=== PATIENT | male | born 1945 | race Caucasian/White ===

== ENCOUNTER → 2016-05-21 | Outpatient (CLI) | payer OTHER ==
[2016-03-01 08:25] VITALS: BP 143/66
[~2016-05-21] MED LIST: AMLO10TA2 PO; ASPI81TA2 PO; ATEN50TA PO; GABA-586 PO; GLIP10TA13 PO; HYDR-2666 PO; HYDR-971 PO; INSU100V13 SQ; IOHEXOL 180 MG/ML 10 ML VIAL. ONE; LOSA100T6 PO; METF10002 PO; MULT-245 PO; MULT-460 PO; OXYC-244 PO; POTA10TA10 PO; PRAZ2CAP2 PO; SERT100T PO; TERA10CA3 PO; VENTOLIN HFA18 GM INH; WARF1TAB PO; ZOLP5TAB4 PO; methylPREDNISolone ACETATE 40 MG/ML VIAL. ONE; methylPREDNISolone ACETATE 80 MG/ML VIAL. ONE
--- NOTE | 2016-05-21 23:00 | CONS ---
DATE OF CONSULTATION: 05/21/2016 INITIAL CONSULTATION FOR PAIN CLINIC CHIEF COMPLAINT: Low back, right lower extremity pain. HISTORY OF PRESENT ILLNESS: This is a 70-year-old male who presents with history of pain for many years, worse over the past 1 year, in the low back, right hip, right leg. The patient did have hip replacement in February 2016, which helped a lot with his hip pain, but still having some significant pain in his low back, occasionally radiating to his right leg, mostly in the lateral and anterior aspect as well as the medial aspect of the lower leg, but only rarely, mostly in the hip and thigh, posterior gluteus, lateral gluteus on the lateral thigh, that is on the right side, medial thigh on the right as well. The patient reports the pain is constant, sharp, stabbing, throbbing, intermittent in intensity with radiating pain in the right leg and aching. The patient did have some plain films in 04/2016 at the [facility] showing old unchanged compression fracture at L1, mild spondylosis with degenerative disk disease at T12 and L1 and questionable minimal change at L1-L2 from the film of 2013. Facet joint osteoarthropathy involving the lower segments and degenerative arthrosis that is involving sacroiliac joints, worse on the left. The patient reports that the pain awakens him from sleep at least twice a night. It does affect his bowel or bladder control. He reports he does not have any incontinence, but appeared to have increased urinary frequency when the pain is at its worst. The patient reports he is walking with a cane and does affect his ability to walk significantly when he holds it in his left hand. The patient has had physical therapy as well as counseling, some chiropractic treatment in the past, but nothing recently. Physical therapy was not for about 15 years or so. He is doing some stretching, strengthening on his own, but no formal therapy recently. The patient did have MRI scan. He reports that the ____ [facility] is pending at time of this dictation. Reports a disability rate from 0 to 10, 10 being the worst, is a 10 with family and home responsibilities and sexual behavior, 9 with recreation, 8 with social activity and occupation, 6 with self care and 7 with life support activities. The patient reports no loss of motor function of his right lower extremity, but does fatigue much more easily than the left, worse with standing, walking, changing positions, sitting from standing, also lying down and leaning on his right side causes some significant pain as well at night. PAST MEDICAL HISTORY: Significant for hearing loss, tinnitus, type 2 diabetes, hypertension, obesity, sleep apnea, quit smoking in 1984, shortness of breath with exertion, bradycardia, posttraumatic stress disorder, arthritis. PREVIOUS SURGERY: Include right total hip replacement in 02/2016 and oral surgery in 11/2015. CURRENT MEDICATIONS: Include metformin, albuterol inhaler, amlodipine, hydrocodone, Zoloft, terazosin, zolpidem, glipizide, insulin, losartan, prazosin, atenolol, aspirin, gabapentin. ALLERGIES: The patient has no known drug allergies. FAMILY HISTORY: Significant for diabetes, heart disease. SOCIAL HISTORY: The patient does not smoke, quit smoking many years ago, does not drink alcohol. He is single, , lives on his own and lives locally in [place], [place]. REVIEW OF SYSTEMS: The patient's review of systems is positive for those items mentioned in history of present illness. All systems reviewed and otherwise negative. It is complete, full and well documented on the patient's chart. PHYSICAL EXAMINATION: VITAL SIGNS: The patient's blood pressure is 162/71, pulse 56, respirations 20, temperature 97.7 degrees Fahrenheit, height 6 feet, weight 323 pounds. GENERAL: The patient is awake, alert, oriented, appropriate, very pleasant demeanor. HEENT: Head shows normocephalic, atraumatic. Extraocular movements are intact and symmetrical. Oral cavity shows mucous membranes moist and pink. Dentition is intact. NECK: Shows anterior throat supple without palpable lymphadenopathy noted. Swallow reflex is symmetrical. Neck shows full rotation and motion of cervical spine without tenderness or difficulty. CHEST: Shows normal on inspection. Breath sounds clear to auscultation bilaterally, no rales, rhonchi or wheezes were auscultated. HEART: Shows S1 and S2 clear. No murmurs auscultated. ABDOMEN: Obese, soft, nontender, nondistended. No palpable organomegaly is noted. No rebound or guarding demonstrated. BACK: The patient's back shows spine grossly midline. Normal appearing thoracic kyphosis and lumbar lordotic curvature. No previous bruises, lesions, rashes or scars are noted on inspection. Lumbar paraspinous musculature shows with palpation, significant tenderness in the low lumbar distribution, mostly on the right in the middle and lower paraspinous musculature, not on the left, but no asymmetry in the musculature on appearance. There is normal muscle girth and firm to the palpable ____, no tenderness over the spinous processes. No tenderness over the sacrum and sacroiliac regions. The patient shows good rotation and motion both laterally greater than 10 degrees right and left as well as extension greater than 10 degrees, forward flexion 45 degrees with very minor pain reported with extension, but not with forward flexion. EXTREMITIES: Lower extremities show deep tendon reflexes at 1+ in the patellar and tendo calcaneus tendons are equal. Motor exam is strong with approximately 4 on a scale of 5 with right quadriceps and hamstring flexion and 5/5 on the left, dorsiflexion, extension are 5/5 and equal bilaterally. Peripheral pulses are 1+ posterior tibial and dorsalis pedis pulses. No peripheral edema is noted. No clubbing, no cyanosis. Lower extremities are warm and dry to touch, equal in color and appearance. Straight leg raise noted to be negative for reproduction of radicular symptoms both right and left. Gaenslen's and Serge's maneuvers are slightly limited on the right side secondary to recent hip surgery, is negative bilaterally. The patient is able to stand, stand on his toes without difficulty, without loss of balance, able to heel toe step for several steps, some minor pain reported with putting all of weight on his right side, but he believes this is from his recent hip surgery and not in the back. Again, patient is using a cane, he is left-handed, slight favoring gait, favoring the right lower extremity with ambulation. IMPRESSION: 1. This is a 70-year-old male with long history of low back, right lower extremity pain with increased exacerbation over the past year or so. 2. Lumbar plain films as noted. 3. Recent hip replacement on the right. 4. Obesity. 5. Hypertension. 6. Type 2 diabetes. PLAN: Options were discussed with the patient including conservative medical management, physical therapy, interventional techniques. He would like to proceed with interventional techniques. We discussed a lumbar epidural steroid injection using description as well as anatomical models to describe the procedure. Risks were then discussed including, but not limited to bleeding, infection, possibility of epidural hematoma, subsequent neurologic compromise, dural puncture, headaches, spinal cord and/or nerve damage, side effects of steroid medication and possible exacerbation of current symptoms and poor results regarding pain control. The patient understands and wishes to proceed. The patient will return to clinic in approximately 2 weeks for followup, was counseled on return appointment, activity level and side effects to be aware of. DIAGNOSIS: Lumbar radiculopathy with lumbar degenerative disk disease and low back pain. PROCEDURES: Lumbar epidural steroid injection, translaminar approach at the L4-L5 level with fluoroscopic guidance under sterile prep and drape using local anesthetic. MEDICATIONS INJECTED: Depo-Medrol 120 mg plus 10 mL of preservative-free normal saline and 2 mL of Isovue contrast. CONDITION AT DISCHARGE: Stable. The patient tolerated the procedure well, had no complications. GILDARDO FAULKNER MD DR: TARI/salbador JOB#: [id number] / [id number]
== END ==
LOC: PNCL 08:57
PROVIDERS: ATTEND Anesthesiology
DX: M51.16 Intervertebral disc disorders with radiculopathy, lumbar region (principal); I10 Essential (primary) hypertension; E11.9 Type 2 diabetes mellitus without complications; E66.9 Obesity, unspecified; H91.90 Unspecified hearing loss, unspecified ear; M19.90 Unspecified osteoarthritis, unspecified site
CPT/HCPCS: 62323; J1030; J1040

== ENCOUNTER → 2016-07-10 | Outpatient (CLI) | payer OTHER ==
[2016-03-01 08:25] VITALS: BP 143/66
[~2016-07-10] MED LIST changes: -ZOLP5TAB4 PO; +ZOLP5TAB5 PO
--- NOTE | 2016-07-11 03:28 | PN ---
DATE: 07/10/2016 DIAGNOSES: Lumbar radiculopathy with lumbar degenerative disk disease and low back pain with. HISTORY OF PRESENT ILLNESS: The patient is a 71-year-old male who returns for followup status post lumbar epidural steroid injection x 1. The patient reports about 70% improvement in the low back and right lower extremity. Right lower extremity pain is almost gone, but he is still having some back pain, but is worse with standing or bending. The patient reports it as a dull aching sensation in the low back, alternating with some shooting pain in the right hip, but only very minimal in the hip. The patient reports it is 7 on a scale of 10 at its worst, reports no new motor or sensory deficits ____ increasing his activity as he has felt so much better with greater ease and comfort, sleeping well at night. The patient reports otherwise no new complaints. PHYSICAL EXAMINATION: VITAL SIGNS: Shows blood pressure 147/54, pulse 55, respirations 18, temperature 97.5 degrees Fahrenheit, height 6 feet, and weight is 330 pounds. GENERAL: The patient is awake, alert, oriented, appropriate, very pleasant demeanor. HEENT: Head shows normocephalic, atraumatic. Extraocular movements are intact and symmetrical. Oral cavity shows mucous membranes moist and pink. Dentition is intact. NECK: Shows anterior throat supple without palpable lymphadenopathy noted. Swallow reflex is symmetrical. CHEST: Shows normal on inspection. Breath sounds are clear to auscultation bilaterally. HEART: Shows S1 and S2 clear. No murmurs are auscultated. ABDOMEN: Obese, soft, nontender, and nondistended. No palpable organomegaly is noted. No rebound or guarding demonstrated. BACK: Shows spine grossly midline. Lumbar paraspinous musculature shows some mild tenderness with palpation, but only diffusely in the lower lumbar distribution bilaterally, but appears roughly symmetrical in appearance. Muscle girth is normal and firm in content. No tenderness over the spinous processes. No tenderness over the sacrum and sacroiliac regions. The patient shows good rotation and motion of the lumbar spine, both laterally as well as extension and flexion without significant difficulty as well. EXTREMITIES: The patient's lower extremities showed deep tendon reflexes 1+ in the patellar and tendo calcaneus tendons are equal. Motor exam is approximately 4 on a scale 5 with right quadriceps and hamstring flexion 5/5 on the left. Peripheral pulses are 1+ in the posterior tibial and dorsalis pedis pulses and are equal. Options were discussed with the patient and the patient's old chart was reviewed as his current medication regimen and updated. Current review of systems updated today as well. We will proceed with a second lumbar epidural steroid injection today with fluoroscopic guidance. Risks were again discussed including, but not limited to bleeding, infection, possibility of epidural hematoma, subsequent neurologic compromise, dural puncture, headaches, spinal cord and/or nerve damage, side effects of steroid medication and poor results regarding pain control. The patient understands and wishes to proceed. The patient will return to clinic in approximately 2 weeks for followup. He was counseled to return appointment, activity level and side effects to be aware of. DIAGNOSIS: Lumbar radiculopathy with lumbar degenerative disk disease and low back pain. PROCEDURES: Lumbar epidural steroid injection in translaminar approach to the L4-L5 level using fluoroscopic guidance under sterile prep and drape using local anesthetic. MEDICATIONS INJECTED: Depo-Medrol 120 mg plus 10 mL of preservative-free normal saline and 2 mL of Isovue contrast. The patient's condition on discharge is stable. The patient tolerated procedure well, had no complications. GILDARDO FAULKNER MD DR: TARI/nts JOB#: [id number] / [id number]
== END | disposition home or self-care (01) ==
LOC: PNCL 10:06
PROVIDERS: ATTEND Anesthesiology
DX: M51.16 Intervertebral disc disorders with radiculopathy, lumbar region (principal); E78.00 Pure hypercholesterolemia, unspecified; I10 Essential (primary) hypertension; M19.90 Unspecified osteoarthritis, unspecified site; E11.9 Type 2 diabetes mellitus without complications; F32.9 Major depressive disorder, single episode, unspecified; Z87.39 Personal history of other diseases of the musculoskeletal system and connective tissue; Z72.89 Other problems related to lifestyle
CPT/HCPCS: 62323; J1030; J1040; 62327

== ENCOUNTER → 2017-09-12 | Outpatient (CLI) | payer OTHER ==
[~2017-09-12] MED LIST changes: -AMLO10TA2 PO; -ASPI81TA2 PO; -ATEN50TA PO; -GABA-586 PO; -GLIP10TA13 PO; -HYDR-2666 PO; -HYDR-971 PO; -INSU100V13 SQ; +IOHEXOL 180 MG/ML 10 ML VIAL.; -IOHEXOL 180 MG/ML 10 ML VIAL. ONE; -LOSA100T6 PO; -METF10002 PO; -MULT-245 PO; -MULT-460 PO; -OXYC-244 PO; -POTA10TA10 PO; -PRAZ2CAP2 PO; -SERT100T PO; -TERA10CA3 PO; -VENTOLIN HFA18 GM INH; -WARF1TAB PO; -ZOLP5TAB5 PO; +methylPREDNISolone ACETATE 40 MG/ML VIAL.; -methylPREDNISolone ACETATE 40 MG/ML VIAL. ONE; +methylPREDNISolone ACETATE 80 MG/ML VIAL.; -methylPREDNISolone ACETATE 80 MG/ML VIAL. ONE
== END ==
LOC: PNCL 10:53
DX: M50.10 Cervical disc disorder with radiculopathy, unspecified cervical region (principal); M48.02 Spinal stenosis, cervical region; M51.16 Intervertebral disc disorders with radiculopathy, lumbar region
CPT/HCPCS: 62321; J1030; J1040; Q9965

== ENCOUNTER → 2019-06-02 | Outpatient (CLI) | payer OTHER ==
[2016-03-01 08:25] VITALS: BP 143/66
[~2019-06-02] MED LIST changes: +ALBU2.5V8 IH; +AMLO10TA8 PO; +ASPI-630 PO; +ATEN50TA PO; +GABA300C18 PO; +GLIP10TA13 PO; +HYDR-2761 PO; +HYDR-3164 PO; +INSU100V13 SQ; -IOHEXOL 180 MG/ML 10 ML VIAL.; +IOHEXOL 180 MG/ML 10 ML VIAL. ONE; +LOSA100T14 PO; +METF10007 PO; +MULT-245 PO; +MULT-460 PO; +OXYC1TAB19 PO; +POTA10TA12 PO; +POTASSIUM CHLO10 ME1 PO; +PRAZ2CAP2 PO; +ROSU5TAB12 PO; +SEMA0.25 SQ; +SERT100T PO; +SPIR50TA4 PO; +TAMS0.4C97 PO; +TERA10CA3 PO; +TERA5CAP3 PO; +VENTOLIN HFA18 GM INH; +WARF1TAB74 PO; +ZOLP5TAB5 PO; -methylPREDNISolone ACETATE 40 MG/ML VIAL.; +methylPREDNISolone ACETATE 40 MG/ML VIAL. ONE; -methylPREDNISolone ACETATE 80 MG/ML VIAL.; +methylPREDNISolone ACETATE 80 MG/ML VIAL. ONE
--- NOTE | 2019-06-02 11:39 | PAIN ---
DATE OF SERVICE: 06/02/2019 PROGRESS NOTE FOR PAIN CLINIC DIAGNOSES: 1. Lumbar radiculopathy with lumbar degenerative disk disease. 2. Cervical radiculopathy with cervical degenerative disk disease and cervical spinal stenosis. HISTORY OF PRESENT ILLNESS: The patient is a 73-year-old male who returns for followup, last seen on 09/12/2017. The patient did very well after lumbar epidural steroid injections and cervical epidural steroid injection. The patient reports that the pain is returning now for about the past 2 weeks at its worst, but in the low back and the right lower extremity posterior gluteus, lateral thigh, and lateral anterior thigh. The patient reports that it is worse with walking, standing, and changing positions. He did better for about a year after his last injection for this, and the pain is now returning, like I said, with activity. Initially, he was doing much better with distance walking, doing work activities, household activities, and traveling with greater ease and comfort. Sleeping still is without disturbance from the pain. The patient rates pain as 7 on a scale of 10 at its average and worst, a 4 at its least, and is a 4 today. The patient reports it is aching, sharp, and severe at times, again worse with ambulation, standing, and walking and the patient reports no new motor or sensory deficits. No new bowel or bladder incontinence or other complaints. PHYSICAL EXAMINATION: VITAL SIGNS: The patient's blood pressure is 150/60, pulse 60, respirations 18, temperature 97.9 degrees Fahrenheit, height is 6 feet, and weight is 324 pounds. GENERAL: The patient is awake, alert, oriented, and appropriate with very pleasant demeanor. HEENT: Shows normocephalic and atraumatic. Extraocular movements are intact and symmetrical. Oral cavity shows mucous membranes moist and pink. Dentition is intact. NECK: Shows anterior throat supple without palpable lymphadenopathy noted. Swallow reflex symmetrical. CHEST: Shows normal on inspection. Breath sounds are clear bilaterally. HEART: Shows S1, S2 clear. No murmurs auscultated. ABDOMEN: Soft, nontender, and nondistended. MUSCULOSKELETAL: Back shows spine grossly in the midline, slight exaggerated thoracic kyphosis, and minor flattening of lumbar lordotic curvature. Lumbar paraspinous muscle shows symmetrical on inspection and with palpation shows some moderate tenderness diffusely bilaterally, going diffusely without significant radiation. The patient has good rotational motion of lumbar spine, both laterally as well as extension and flexion without difficulty. EXTREMITIES: Lower extremities show deep tendon reflexes at 2+ in the patellar and 1+ tendo-calcaneus tendons. Motor exam is strong with 5/5 dorsiflexion, extension, quadriceps, and hamstring flexion. Peripheral pulses are 1+ posterior tibia. No peripheral edema is noted. PLAN: Options were discussed with the patient. The patient's old chart was reviewed as his current medication regimen updated. Current review of systems updated today as well. We will proceed with a lumbar epidural steroid injection today with fluoroscopic guidance. Risks were again discussed including but not limited to bleeding, infection, possibility of epidural hematoma, subsequent neurological compromise, dural puncture, headaches, spinal cord and/or nerve damage, side effects of steroid medication and poor results regarding pain control. The patient understands and wished to proceed. The patient will return to clinic in approximately 2 weeks for followup or as necessary. He would like to leave it open. He did very well after last injection. The patient was counseled as to activity level as well as side effects to be aware of. DIAGNOSIS: Lumbar radiculopathy with lumbar degenerative disk disease. PROCEDURE: Lumbar epidural steroid injection, translaminar approach at L4-5 level using C-arm fluoroscopic guidance under sterile prep and drape using local anesthetic. MEDICATION INJECTED: A total of 120 mg of Depo-Medrol plus 10 mL of preservative-free normal saline and 2 mL of contrast. CONDITION AT DISCHARGE: Stable. The patient tolerated procedure well and had no complications. GILDARDO FAULKNER MD DR: TARI/salbador JOB#: [id number] / [id number]
== END | disposition home or self-care (01) ==
LOC: PNCL 09:35
PROVIDERS: ATTEND Anesthesiology
DX: M51.16 Intervertebral disc disorders with radiculopathy, lumbar region (principal); M48.02 Spinal stenosis, cervical region; Z98.890 Other specified postprocedural states; Z88.8 Allergy status to other drugs, medicaments and biological substances
CPT/HCPCS: 62323; J1030; J1040; Q9965

== ENCOUNTER → 2019-07-14 | Outpatient (CLI) | payer OTHER ==
[2016-03-01 08:25] VITALS: BP 143/66
--- NOTE | 2019-07-14 14:41 | PAIN ---
DATE OF SERVICE: 07/14/2019 PROGRESS NOTE FOR PAIN CLINIC DIAGNOSES: Lumbar radiculopathy with lumbar degenerative disk disease and lumbar low back pain. HISTORY OF PRESENT ILLNESS: The patient is a 74-year-old male who returns for followup status post lumbar epidural steroid injection x 1. The patient reports about 80% improvement after the first injection in the low back into the bilateral lower extremities. The patient reports he has increased activity with greater distance walking, doing work activities, household activities, much better with sitting or lying down, does not awaken him from sleep most nights. The patient reports that with standing, such as fixing a meal or doing some dishes at the counter in his kitchen then he starts to notice the pain in the mid low back as well. The patient reports it is an 8 on a scale of 10 at its worst over the past week, 7 on average and 4 at its least and is a 4 today. The patient reports it is aching, sharp, becoming constant with activity, standing, walking, better with sitting or lying down, but is almost completely relieved. PHYSICAL EXAMINATION: VITAL SIGNS: The patient's blood pressure 144/61, pulse 63, respirations 18, temperature 97.9 degrees Fahrenheit, height 6 feet, weight is 323 pounds. GENERAL: The patient is awake, alert, oriented, appropriate, very pleasant demeanor. HEENT: Head shows normocephalic, atraumatic. Extraocular movements are intact and symmetrical. Oral cavity: Mucous membranes are moist and pink. Dentition is intact. NECK: Shows anterior throat supple without palpable lymphadenopathy noted. Swallow reflex symmetrical. CHEST: Shows normal on inspection. Breath sounds clear to auscultation bilaterally. HEART: Shows S1, S2 clear. ABDOMEN: Obese, soft, nontender, nondistended. No palpable organomegaly is noted. No rebound or guarding demonstrated. BACK: Shows spine grossly in the midline. Normal appearing thoracic kyphosis and minor flattening of lumbar lordotic curvature. Lumbar paraspinous muscle shows symmetrical on inspection, on palpation shows some moderate tenderness diffusely bilaterally and diffusely without significant radiation. The patient has good rotation of lumbar spine, both laterally as well as extension and flexion without difficulty. EXTREMITIES: Lower extremities show deep tendon reflexes 2+ in the patellar, 1+ tendo-calcaneus tendons. Motor exam is strong with 4/5 on the right and 5/5 on the left dorsiflexion and extension. Peripheral pulses are 1+ posterior tibia. No peripheral edema bilaterally. Options were discussed with the patient. The patient's old chart was reviewed as his current medication regimen updated. Current review of systems updated today as well. We will proceed with a second in a series of lumbar epidural steroid injection today with fluoroscopic guidance. Risks were again discussed including, but not limited to bleeding, infection, possibility of epidural hematoma, subsequent neurologic compromise, dural puncture, headaches, spinal cord and/or nerve damage, side effects of steroid medication and poor results regarding pain control. The patient understands and wished to proceed. The patient will return to clinic in approximately 2 weeks for followup. He was counseled on return appointment, activity level and side effects to be aware of. DIAGNOSES: Lumbar radiculopathy with lumbar degenerative disk disease, low back pain. PROCEDURE: Lumbar epidural steroid injection, translaminar approach at L4-L5 level using C-arm fluoroscopic guidance under sterile prep and drape using local anesthetic. MEDICATION INJECTED: A total of 120 mg Depo-Medrol plus 10 mL of preservative-free normal saline and 2 mL of contrast. CONDITION AT DISCHARGE: Stable. The patient tolerated the procedure well, had no complications. GILDARDO FAULKNER MD DR: TARI/salbador JOB#: [id number] / [id number]
== END ==
LOC: PNCL 09:40
PROVIDERS: ATTEND Anesthesiology
DX: M51.16 Intervertebral disc disorders with radiculopathy, lumbar region (principal)
CPT/HCPCS: 62323; J1030; J1040; Q9965

== ENCOUNTER → 2019-10-05 | Outpatient (CLI) | payer OTHER ==
[2016-03-01 08:25] VITALS: BP 143/66
--- NOTE | 2019-10-05 09:52 | PAIN ---
DATE OF SERVICE: 10/05/2019 PROGRESS NOTE FOR PAIN CLINIC DIAGNOSES: Lumbar radiculopathy with lumbar degenerative disk disease and low back pain. HISTORY OF PRESENT ILLNESS: The patient is a 74-year-old male who returns for followup status post lumbar epidural steroid injections x 2, most recently seen on 07/14/2019. The patient did very well with about a 70% improvement for about a month and the pain began to return after that time, but is now in the low back bilaterally into the lower extremities, mostly in the posterior gluteus, lateral thigh, anterior thighs and buttocks, especially across the low back. The patient reports initially he was doing much better with distance walking, doing household activities, working activities, traveling with greater ease and comfort. Reports he still sleeps well at night, does not bother him much when he is sitting or lying down, but it is more when he is on his feet, walking, changing positions. The patient reports no new motor or sensory deficits, rates his pain as a 10 on a scale of 10 at its worst in the past week, 7 on average and 4 at its least and is a 4 today. The patient reports it is aching, can be severe at times with increased activities or bending across the low back and into the legs. The patient reports no new bowel or bladder incontinence or other complaints. PHYSICAL EXAMINATION: VITAL SIGNS: The patient's blood pressure is 142/80, pulse 60, respirations 18, temperature 98.0 degrees Fahrenheit, height 6 feet, weight is 328 pounds. GENERAL: The patient is awake, alert, oriented, appropriate, very pleasant demeanor. HEENT: Head shows normocephalic, atraumatic. Extraocular movements are intact and symmetrical. Oral cavity: Mucous membranes moist and pink. Dentition is intact. NECK: Shows anterior throat supple without palpable lymphadenopathy noted. Swallow reflex symmetrical. CHEST: Shows normal on inspection. Breath sounds are clear bilaterally. HEART: Shows S1, S2 clear. No murmurs auscultated. ABDOMEN: Soft, nontender, nondistended. No palpable organomegaly is noted. No rebound or guarding demonstrated. BACK: Shows spine grossly in the midline. Normal-appearing thoracic kyphosis and minor flattening of lumbar lordotic curvature. Lumbar paraspinous muscle shows symmetrical on inspection, on palpation shows some moderate tenderness diffusely bilaterally, but only diffusely without significant radiation. The patient has good rotational motion of lumbar spine, both laterally as well as extension and flexion without significant increase in pain. EXTREMITIES: Lower extremities show deep tendon reflexes at 2+ patellar, 1+ tendo-calcaneus tendons. Motor exam is approximately 4 on a scale of 5 on the right and 5/5 on the left with dorsiflexion and extension. Peripheral pulses are 1+. No peripheral edema is noted bilaterally. Options were discussed with the patient. The patient's old chart was reviewed as his current medication regimen updated. Current review of systems updated today as well and we will proceed with a third in the series of lumbar epidural steroid injection today with fluoroscopic guidance. Risks were again discussed including, but not limited to bleeding, infection, possibility of epidural hematoma, subsequent neurological compromise, dural puncture, headaches, spinal cord and/or nerve damage, side effects of steroid medication and poor results regarding pain control. The patient understands and wished to proceed. The patient will return to clinic in approximately 2 weeks for followup, was counseled on return appointment, activity level and side effects to be aware of. DIAGNOSES: Lumbar radiculopathy with lumbar degenerative disk disease, low back pain. PROCEDURE: Lumbar epidural steroid injection, translaminar approach at the L4-L5 level using C-arm fluoroscopic guidance under sterile prep and drape using local anesthetic. MEDICATION INJECTED: A total of 120 mg Depo-Medrol plus 10 mL of preservative-free normal saline and 2 mL of contrast. CONDITION AT DISCHARGE: Stable. The patient tolerated procedure well, had no complications. GILDARDO FAULKNER MD DR: TARI/salbador JOB#: [id number] / [id number]
== END ==
LOC: PNCL 08:06
PROVIDERS: ATTEND Anesthesiology
DX: M51.16 Intervertebral disc disorders with radiculopathy, lumbar region (principal)
CPT/HCPCS: 62323; J1030; J1040; Q9965

== ENCOUNTER → 2020-04-14 | Outpatient (CLI) | payer OTHER ==
[2016-03-01 08:25] VITALS: BP 143/66
[~2020-04-14] MED LIST changes: +AMLO-187 PO; -AMLO10TA8 PO; +FURO40TA4 PO; +WARF1TAB2 PO; -WARF1TAB74 PO
--- NOTE | 2020-04-14 09:52 | PDOC ---
Progress Note - Pain Clinic Date of Service: DOS: DATE: 04/14/20 TIME: 09:48 Diagnosis: Dx: Lumbar radiculopathy with lumbar degenerative disease and low back pain Cervical radiculopathy with cervical degenerative disc disease and cervical spinal stenosis History or Present Illness: HPI: 74-year-old male returns follow-up status post lumbar epidural steroid injections x2 most recently seen October 05, 2019 patient did very well with about a 70% improvement in the low back and left lower extremity pain patient ports been doing fairly well into the last 2 months or so the pain is being returned in the low back rating the posterior gluteus posterior thigh lateral thigh anterior thigh medial thigh into the knee especially on the left side patient reports is much worse in the knee with pain in the posterior aspect of the knee as well as anterior and medial aspect with walking and standing better with sitting or laying down patient reports it is generally not awaken her from sleep at night but can as frequently as every 5-6 hours but it is infrequent patient reports that his pain is a 10 on scale 10 is worse of the past week 10 on average 7 its least and is a 10 today patient was aching and shooting stabbing constant in the back and into the left lower extremity to the ankle on the left side. Patient reports no new motor or sensory deficits no new bowel or bladder incontinence initially doing much better with distance walking doing household activities traveling with greater ease and comfort now the pain is returned fairly significantly. Physical Exam: VS: Pressure is 158/68, pulse 61 respiration 16 temperature 98.4 F height is 6 foot patient weight is 322 pounds PE: PHYSICAL EXAMINATION: GENERAL: The patient is awake, alert, oriented, appropriate, very pleasant demeanor HEENT: Shows normocephalic, atraumatic. Extraocular movements are intact and symmetrical. Oral cavity: Mucous membranes moist and pink. NECK: Shows anterior throat supple without palpable lymphadenopathy noted. Swallow reflex symmetrical. CHEST: Shows normal on inspection. Breath sounds are clear bilaterally, distant but no rales rhonchi or wheezes auscultated. HEART: Shows S1, S2 clear. No murmurs auscultated. ABDOMEN: Soft, nontender, nondistended, obese. No palpable organomegaly is noted. No rebound or guarding demonstrated. BACK: Shows spine grossly in the midline. Normal-appearing cervical lordotic curvature. There is slightly increased thoracic kyphosis, some minor flattening of the lumbar lordotic curvature. Lumbar paraspinous muscles show symmetrical on inspection, on palpation shows some moderate tenderness diffusely throughout the upper, middle and lower distribution of the paraspinous muscles, but without specific trigger points, without radiation of pain. The patient has good rotational motion of the lumbar spine, both laterally as well as extension and flexion without significant difficulty. No tenderness over the spinous processes, sacrum or sacroiliac regions. EXTREMITIES: Lower extremities show deep tendon reflexes 2+ in the patellar and tendo calcaneus tendons. Motor exam is 4 on a scale of 5 with right dorsifle xion, extension, quadriceps and hamstring flexion and 4/5 on the left. Peripheral pulses are 1+ posterior tibial. No peripheral edema is noted bilaterally. Lower extremities are warm and dry to touch, equal in color and appearance. SKIN: Shows warm and dry, good turgor. No edema. No sores, rashes or bruising throughout. Procedure: Procedure: Options were discussed with the patient. Patient chart was reviewed his current medication regimen updated current review of systems updated today as well. We will proceed with a lumbar epidural steroid injection today with fluoroscopic guidance. Risks were discussed including but not limited to: Bleeding, infection, possibility of epidural hematoma and subsequent neurological c ompromise, dural puncture, headaches, spinal cord and/or nerve damage, side effects of steroid medication, and poor results regarding pain control. Patient understands wished to proceed. Patient will return to clinic in approximate 2 weeks for follow-up with counselors return appointment activity level and side effects to be aware of. Medication Injected: Med Injected: Procedure is lumbar epidural steroid injection under local anesthetic using sterile prep and drape at the L4-5 level using C-arm fluoroscopic guidance in both AP and lateral views medications injected is 120 mg Depo-Medrol + 10 mL pr eservative-free normal saline and 2 mL contrast- condition at discharge is stable patient tolerated procedure well had no complications. Condition at Discharge: Condition at Discharge: Condition at discharge stable, patient tolerated procedure well and had no complications. GILDARDO FAULKNER MD Apr 14, 2020 09:52
== END | disposition home or self-care (01) ==
LOC: PNCL 09:05
PROVIDERS: ATTEND Anesthesiology
DX: M51.16 Intervertebral disc disorders with radiculopathy, lumbar region (principal); M50.10 Cervical disc disorder with radiculopathy, unspecified cervical region; M48.02 Spinal stenosis, cervical region; I10 Essential (primary) hypertension; E11.9 Type 2 diabetes mellitus without complications; E78.00 Pure hypercholesterolemia, unspecified; M19.90 Unspecified osteoarthritis, unspecified site; F32.9 Major depressive disorder, single episode, unspecified; Z87.891 Personal history of nicotine dependence; Z79.82 Long term (current) use of aspirin; Z79.84 Long term (current) use of oral hypoglycemic drugs; Z79.899 Other long term (current) drug therapy; Z98.890 Other specified postprocedural states; Z72.89 Other problems related to lifestyle; Z88.8 Allergy status to other drugs, medicaments and biological substances; Z82.49 Family history of ischemic heart disease and other diseases of the circulatory system; Z83.3 Family history of diabetes mellitus; Z80.3 Family history of malignant neoplasm of breast
CPT/HCPCS: 62323; J1030; J1040; Q9965

== ENCOUNTER → 2020-05-02 | Outpatient (CLI) | payer OTHER ==
[2016-03-01 08:25] VITALS: BP 143/66
--- NOTE | 2020-05-02 11:38 | PDOC ---
Progress Note - Pain Clinic Date of Service: DOS: DATE: 05/02/20 TIME: 11:35 Diagnosis: Dx: Lumbar radiculopathy with lumbar degenerative disc disease and low back pain Cervical radiculopathy with cervical degenerative disease and cervical spinal stenosis Bilateral knee joint pain with osteoarthritis History or Present Illness: HPI: 74-year-old male returns follow-up status post lumbar epidural steroid traction x1. Patient reports about 100% improvement for the first 2 weeks and the pain returning but not near baseline in the low back somewhat on the right side greater than the left today but present bilaterally patient reports is worse with walking standing change positions better with sitting or laying down generally is not awakening from sleep at night but can occasionally patient also complains of pain in the bilateral knees right greater than left as well and is scheduling x-rays for these coming up this week. Patient reports his pain in the back and legs is a 10 on scale 10 is worst in the last week 7 on average 6 a t its least is a 7 today. Patient was aching and constant in the back and the legs again somewhat worse on the right at this time but present bilaterally. Patient reports no new motor or sensory deficits no new bowel or bladder incontinence or other complaints. Physical Exam: VS: Blood pressure 142/71 pulse 71 respirations 18 temperature 90.5 F height is 6 foot weight is 329 pounds PE: PHYSICAL EXAMINATION: GENERAL: The patient is awake, alert, oriented, appropriate, very pleasant demeanor HEENT: Shows normocephalic, atraumatic. Extraocular movements are intact and symmetrical. Oral cavity: Mucous membranes moist and pink. NECK: Shows anterior throat supple without palpable lymphadenopathy noted. Swallow reflex symmetrical. CHEST: Shows normal on inspection. Breath sounds are clear bilaterally. HEART: Shows S1, S2 clear. No murmurs auscultated. ABDOMEN: Soft, nontender, nondistended, obese. No palpable organomegaly is noted. No rebound or guarding demonstrated. BACK: Shows spine grossly in the midline. Normal-appearing cervical lordotic curvature. There is slightly increased thoracic kyphosis, some minor flattening of the lumbar lordotic curvature. Lumbar paraspinous muscles show symmetrical on inspection, on palpation shows some moderate tenderness diffusely throughout the upper, middle and lower distribution of the paraspinous muscles without specific trigger points, without radiation of pain. The patient has good rotational motion of the lumbar spine, both laterally as well as extension and flexion without significant difficulty. No tenderness over the spinous processes, sacrum or sacroiliac regions. EXTREMITIES: Lower extremities show deep tendon reflexes 2+ in the patellar and tendo calcaneus tendons. Motor exam is 4 on a scale of 5 with right dorsiflexion, extension, quadriceps and hamstring flexion and 4/5 on the left. Peripheral pulses are 1+ posterior tibial. No peripheral edema is noted bilaterally. Lower extremities are warm and dry to touch, equal in color and appearance. SKIN: Shows warm and dry, good turgor. No edema. No sores, rashes or bruising throughout. Procedure: Procedure: Options were discussed with the patient. Patient chart reviewed his current case regimen updated current review of systems updated today as well. We will proceed with a second in the series lumbar epidural steroid injection today with fluoroscopic guidance. Risks were discussed including but not limited to: Bl eeding, infection, possibility of epidural hematoma and subsequent neurological compromise, dural puncture, headaches, spinal cord and/or nerve damage, side effects of steroid medication, and poor results regarding pain control. Patient understands wished to proceed. Patient will return to clinic in approximate 2 weeks for follow-up was counseled as to return appointment activity level and side effects to be aware of. Medication Injected: Med Injected: Procedure is lumbar epidural steroid injection under local anesthetic using sterile prep and drape at the L4-5 level using C-arm fluoroscopic guidance in both AP and lateral views medications injected is 120 mg Depo-Medrol + 10 mL preservative-free normal saline and 2 mL contrast- condition at discharge is stable patient tolerated procedure well had no complications. Condition at Discharge: Condition at Discharge: Patient discharged stable, patient tolerated procedure well had no complications. GILDARDO FAULKNER MD May 02, 2020 11:38
== END | disposition home or self-care (01) ==
LOC: PNCL 11:00
PROVIDERS: ATTEND Anesthesiology
DX: M51.16 Intervertebral disc disorders with radiculopathy, lumbar region (principal); M50.120 Mid-cervical disc disorder, unspecified level; M48.02 Spinal stenosis, cervical region; M17.0 Bilateral primary osteoarthritis of knee; Z98.890 Other specified postprocedural states; Z88.8 Allergy status to other drugs, medicaments and biological substances
CPT/HCPCS: 62323; J1030; J1040; Q9965